=== PATIENT | male | born 1945 | race Hispanic/Latino ===

== ENCOUNTER 2017-10-09 23:52 | Emergency (ER) | payer MEDICARE, MEDICAID ==
[~2017-10-09] VITALS: Ht 154.9 cm; Wt 79.4 kg
[~2017-10-09 23:52] MED LIST: AMLODIPINE10 MG PO; ASPIRIN LOW DOS81 MG PO; ASPIRIN325 MG PO; BACLOFEN10 MG PO; BAYER ASPIRIN325 MG PO; CIPROFLOXACN500 MG PO; DIABETA5 MG PO; EC ASPIRIN325 MG PO; ERYTHROMYCIN250 MG PO; FERR SULFATE325 MG PO; GLIPIZIDE10 M2 PO; GLUCOPHAGE1000 MG PO; GLYBURIDE5 MG PO; GOLYTEL1 OR; HYDROCHLOROT12.5 M1 PO; HYDROCHLOROT12.5 MG PO; HYDROCHLOROT25 MG PO; IRON325 M1 PO; LISINOPRIL20 MG PO; LOVASTATIN20 M1 PO; LOVASTATIN20 MG PO; MAGNESIUM296 ML/BTL PO; MEDDOSEPAK PO; MELOXICAM15 MG PO; METFORMIN1000 MG PO; METFORMIN500 M2 PO; METFORMIN500 MG PO; MILK OF MAG30 ML/UDC PO; NAPROSYN500 MG PO; NEOMYCIN500 MG PO; OMEPRAZOLE20 M1 PO; OMEPRAZOLE20 MG PO; OMEPRAZOLE40 MG PO; PHENERGAN12.5 MG/TA PO; PLAVIX75 MG PO; TAMSULOSIN0.4 MG PO; TRAMADOL HCL50 MG PO; ULTRAM50 MG PO; ZOFRAN ODT4 MG PO; [UNRECOGNIZED DRUG - OTHER] PO
[2017-10-10 00:23] LABS: URINE BILIRUBIN - DIPSTICK NEGATIVE (NEGATIVE); URINE BLOOD DIPSTICK NEGATIVE (NEGATIVE); URINE COLOR YELLOW; URINE GLUCOSE - DIPSTICK >=1000 mg/dL (NEGATIVE); URINE KETONE NEGATIVE (NEGATIVE); URINE LEUK ESTERASE NEGATIVE (NEGATIVE); URINE NITRITE - DIPSTICK NEGATIVE (Negative); URINE PROTEIN - DIPSTICK NEGATIVE (NEG-TRACE); URINE UROBILINOGEN - DIPSTICK 0.2 E.U./dL (0.2)
[2017-10-10 00:25] LABS: URINE CLARITY SL CLOUDY
[2017-10-10 00:33] LABS: HEMATOCRIT 34.2 % (39.0-50.0); HEMOGLOBIN 11.2 g/dl (14.0-18.0); IMMATURE GRANULOCYTES 0.3 % (0.0-1.0); MEAN CORPUSCULAR HGB 26.9 pG CALC (26.0-32.0); MEAN CORPUSCULAR HGB CONC 32.7 g/L CALC (32.0-36.0); NEUT# 4.35 thou/uL (1.82-7.42); RED BLOOD COUNT 4.17 mill/uL (4.70-6.10); RED CELL DISTRI WIDTH 14.8 % (11.5-15.5)
[2017-10-10 00:48] LABS: ALBUMIN 4.1 g/dL (3.2-5.0); ALKALINE PHOSPHATASE 153 u/l (38-126); ANION GAP 19 (6-22 (CALC)); BILIRUBIN, TOTAL 0.3 mg/dL (0.0-1.4); BUN 25 mg/dL (8-23); BUN/CREATININE RATIO 26 (12-20 (CALC)); CARBON DIOXIDE 27 mmol/l (22-30); CHLORIDE 93 mmol/l (95-108); GFR > 60 ML/MIN (>=60 (CALC)); GFR FOR AFR.AMER. > 60 ML/MIN (>=60 (CALC)); POTASSIUM 4.1 mmol/l (3.5-5.1); SGOT/AST 25 u/l (19-48); SGPT/ALT 37 u/l (11-66); SODIUM 135 mmol/l (137-146)
[2017-10-10 02:13] VITALS: BP 129/62
== END 2017-10-10 02:13 | disposition home or self-care (01) ==
LOC: ED 23:52
PROVIDERS: Emergency Medicine
DX: N39.0 Urinary tract infection, site not specified (principal); N48.1 Balanitis; E11.65 Type 2 diabetes mellitus with hyperglycemia; Z85.038 Personal history of other malignant neoplasm of large intestine

== ENCOUNTER 2017-10-30 09:38 | Day surgery (SDC) | payer MEDICARE, MEDICAID ==
[~2017-10-30] VITALS: Ht 154.9 cm; Wt 78.9 kg
[~2017-10-30 09:38] MED LIST changes: +DOXAZOSIN4 MG PO; +LISINOPRIL40 MG PO; +LOVASTATIN40 M1 PO; +MAXZIDE-2537.5 MG/TA PO; +NAPROXEN500 MG PO; +PANTOPRAZOLE SO40 MG PO; +TRAZODONE100 MG PO
[2017-10-30 11:41] VITALS: BP 130/60
== END 2017-10-30 11:45 | disposition home or self-care (01) ==
LOC: ENDO 09:38 → ORM 12:30
PROVIDERS: ATTEND Internal Medicine Gastroenterology
PROC: 0DB78ZX Excision of Stomach, Pylorus, Via Natural or Artificial Opening Endoscopic, Diagnostic (ICD-10-PCS; principal; 2017-10-30)
DX: K29.50 Unspecified chronic gastritis without bleeding (principal); K25.9 Gastric ulcer, unspecified as acute or chronic, without hemorrhage or perforation; I25.10 Atherosclerotic heart disease of native coronary artery without angina pectoris; E11.9 Type 2 diabetes mellitus without complications; Z85.038 Personal history of other malignant neoplasm of large intestine; Z92.21 Personal history of antineoplastic chemotherapy; Z80.0 Family history of malignant neoplasm of digestive organs; Z86.010 Personal history of colon polyps; Z95.5 Presence of coronary angioplasty implant and graft

== ENCOUNTER 2018-06-03 11:24 | Emergency (ER) | payer MEDICARE ==
[~2018-06-03] VITALS: Ht 154.9 cm; Wt 74.6 kg
[2018-06-03] MEDS ORDERED: JANUVIA100 MG PO (12:28)
[2018-06-03] MEDS ORDERED: TORADOL PO (13:37)
[2018-06-03] MEDS ORDERED: ZITHROMAX250 MG PO (13:37)
[2018-06-03 13:50] VITALS: BP 138/68
== END 2018-06-03 13:50 | disposition home or self-care (01) ==
LOC: ED 11:24
DX: J40 Bronchitis, not specified as acute or chronic (principal); B34.9 Viral infection, unspecified; R50.9 Fever, unspecified; R05 Cough; R09.81 Nasal congestion; R51 Headache

== ENCOUNTER 2020-07-08 10:42 | Emergency (ER) | payer MEDICARE ==
[~2020-07-08] VITALS: Ht 154.9 cm; Wt 75.0 kg
[~2020-07-08 10:42] MED LIST changes: +JANUVIA100 MG PO; +TORADOL PO; +ZITHROMAX250 MG PO
[2020-07-08] MEDS ORDERED: CLONIDINE0.1 MG PO (12:08)
[2020-07-08] MEDS ORDERED: ASPIRIN81 MG PO (12:08)
[2020-07-08 12:22] LABS: HEMATOCRIT 37.3 % (39.0-50.0); HEMOGLOBIN 12.1 g/dl (14.0-18.0); IMMATURE GRANULOCYTES 0.4 % (0.0-5.0); MEAN CORPUSCULAR HGB 27.3 pG CALC (26.0-32.0); MEAN CORPUSCULAR HGB CONC 32.4 g/dL CAL (32.0-36.0); NEUT# 6.02 thou/uL (1.82-7.42); RED BLOOD COUNT 4.44 mill/uL (4.70-6.10); RED CELL DISTRI WIDTH 12.8 % (11.5-15.5)
[2020-07-08 12:38] LABS: ALBUMIN 4.7 g/dL (3.2-5.0); ALKALINE PHOSPHATASE 100 u/l (38-126); ANION GAP 14 (6-22 (CALC)); BILIRUBIN, TOTAL 0.4 mg/dL (0.0-1.4); BUN 23 mg/dL (8-23); BUN/CREATININE RATIO 24 (12-20 (CALC)); CARBON DIOXIDE 28 mmol/l (22-30); CHLORIDE 98 mmol/l (95-108); CREATININE 0.9 mg/dL (0.7-1.3); ETHYL ALCOHOL 0 mg/dl (0-30); GFR > 60 ML/MIN (>=60 (CALC)); GFR FOR AFR.AMER. > 60 ML/MIN (>=60 (CALC)); LIPASE 39 u/l (23-300); POTASSIUM 4.5 mmol/l (3.5-5.1); SGOT/AST 24 u/l (19-48); SODIUM 135 mmol/l (137-146); TOTAL PROTEIN 7.7 g/dL (6.3-8.2)
[2020-07-08 12:39] LABS: D-DIMER 0.41 mg/L (0.19-0.60)
[2020-07-08 12:49] LABS: URINE BILIRUBIN - DIPSTICK NEGATIVE (NEGATIVE); URINE BLOOD DIPSTICK NEGATIVE (NEGATIVE); URINE COLOR YELLOW; URINE GLUCOSE - DIPSTICK NEGATIVE (NEGATIVE); URINE KETONE NEGATIVE (NEGATIVE); URINE LEUK ESTERASE NEGATIVE (NEGATIVE); URINE NITRITE - DIPSTICK NEGATIVE (Negative); URINE PROTEIN - DIPSTICK NEGATIVE (NEG-TRACE); URINE SPECIFIC GRAVITY 1.015; URINE UROBILINOGEN - DIPSTICK 0.2 E.U./dL (0.2)
[2020-07-08 12:50] LABS: ACT PARTIAL THROMBO TIME 24.2 SECONDS (20.0-32.5); PROTHROMBIN TIME 9.9 SECONDS (9.0-12.5)
[2020-07-08] MEDS ORDERED: ZPAK PO (15:02)
[2020-07-08 15:11] VITALS: BP 132/79
== END 2020-07-08 15:21 | disposition home or self-care (01) ==
LOC: ED 10:42
DX: R55 Syncope and collapse (principal); J18.9 Pneumonia, unspecified organism; E11.9 Type 2 diabetes mellitus without complications; I10 Essential (primary) hypertension; E78.5 Hyperlipidemia, unspecified; K21.9 Gastro-esophageal reflux disease without esophagitis; Z85.038 Personal history of other malignant neoplasm of large intestine; Z79.84 Long term (current) use of oral hypoglycemic drugs; Z20.822 Contact with and (suspected) exposure to COVID-19
CPT/HCPCS: Q9967

== ENCOUNTER 2020-07-09 17:01 | Observation (INO) | payer MEDICARE ==
[~2020-07-09] VITALS: Ht 152.4 cm; Wt 72.7 kg
[~2020-07-09 17:01] MED LIST changes: +ASPIRIN81 MG PO; +CLONIDINE0.1 MG PO; +ZPAK PO
[2020-07-09 17:37] LABS: HEMATOCRIT 36.1 % (39.0-50.0); HEMOGLOBIN 11.5 g/dl (14.0-18.0); IMMATURE GRANULOCYTES 0.3 % (0.0-5.0); MEAN CELL VOLUME 85.5 fL CALC (80.0-100.0); MEAN CORPUSCULAR HGB 27.3 pG CALC (26.0-32.0); MEAN CORPUSCULAR HGB CONC 31.9 g/dL CAL (32.0-36.0); NEUT# 4.86 thou/uL (1.82-7.42); RED BLOOD COUNT 4.22 mill/uL (4.70-6.10); RED CELL DISTRI WIDTH 13.1 % (11.5-15.5)
[2020-07-09 17:51] LABS: ANION GAP 16 (6-22 (CALC)); BUN 31 mg/dL (8-23); BUN/CREATININE RATIO 27 (12-20 (CALC)); CARBON DIOXIDE 25 mmol/l (22-30); CHLORIDE 102 mmol/l (95-108); CREATININE 1.2 mg/dL (0.7-1.3); GFR 59 ML/MIN (>=60 (CALC)); GFR FOR AFR.AMER. > 60 ML/MIN (>=60 (CALC)); POTASSIUM 4.6 mmol/l (3.5-5.1); SODIUM 138 mmol/l (137-146)
[2020-07-09 21:05] VITALS: BP 156/72
[2020-07-10] VITALS (11 sets, daily range): BP systolic 135–209; BP diastolic 53–88
[2020-07-10 05:53] LABS: HEMATOCRIT 35.1 % (39.0-50.0); HEMOGLOBIN 11.2 g/dl (14.0-18.0); IMMATURE GRANULOCYTES 0.3 % (0.0-5.0); MEAN CELL VOLUME 85.6 fL CALC (80.0-100.0); MEAN CORPUSCULAR HGB 27.3 pG CALC (26.0-32.0); MEAN CORPUSCULAR HGB CONC 31.9 g/dL CAL (32.0-36.0); NEUT# 5.18 thou/uL (1.82-7.42); RED BLOOD COUNT 4.1 mill/uL (4.70-6.10)
[2020-07-10 06:13] LABS: ALKALINE PHOSPHATASE 97 u/l (38-126); ANION GAP 10 (6-22 (CALC)); BILIRUBIN, TOTAL 0.3 mg/dL (0.0-1.4); BUN 22 mg/dL (8-23); BUN/CREATININE RATIO 24 (12-20 (CALC)); CARBON DIOXIDE 29 mmol/l (22-30); CHLORIDE 105 mmol/l (95-108); CREATININE 0.9 mg/dL (0.7-1.3); GFR > 60 ML/MIN (>=60 (CALC)); GFR FOR AFR.AMER. > 60 ML/MIN (>=60 (CALC)); POTASSIUM 4.1 mmol/l (3.5-5.1); SGOT/AST 22 u/l (19-48); SODIUM 140 mmol/l (137-146); TOTAL PROTEIN 6.6 g/dL (6.3-8.2)
[2020-07-11] VITALS: BP 122/55
[2020-07-11 04:00] VITALS: BP 137/60
[2020-07-11 07:52] VITALS: BP 166/74
[2020-07-11 10:30] VITALS: BP 151/65
[2020-07-11] MEDS ORDERED: XANAX0.5 MG PO (10:47)
[2020-07-11] MEDS ORDERED: ZOLOFT25 MG PO (10:47)
== END 2020-07-11 12:22 | disposition home or self-care (01) ==
LOC: ED 17:01 → ED-I 18:20 → ED 18:34 → MS2 18:35
PROVIDERS: Family Medicine; Nurse Practitioner Family; ADMIT Internal Medicine; ATTEND Internal Medicine
DX: R55 Syncope and collapse (principal); F41.9 Anxiety disorder, unspecified; R00.0 Tachycardia, unspecified; J18.9 Pneumonia, unspecified organism; E11.9 Type 2 diabetes mellitus without complications; I10 Essential (primary) hypertension; K21.9 Gastro-esophageal reflux disease without esophagitis; E78.5 Hyperlipidemia, unspecified; Z80.0 Family history of malignant neoplasm of digestive organs; Z95.5 Presence of coronary angioplasty implant and graft; Z79.84 Long term (current) use of oral hypoglycemic drugs; Z20.822 Contact with and (suspected) exposure to COVID-19
CPT/HCPCS: J1650; J2060

== ENCOUNTER 2024-08-26 23:05 | Emergency (ER) | payer MEDICARE, MEDICAID ==
[~2024-08-26] VITALS: Ht 152.4 cm; Wt 73.0 kg
[~2024-08-26 23:05] MED LIST changes: +CEPHALEXIN500 M1 PO; +XANAX0.5 MG PO; +ZOLOFT25 MG PO
[2024-08-27 00:02] LABS: BASO% 0.5 % (0-3); EOS% 3.7 % (0-8); HEMATOCRIT 32.1 % (39.0-50.0); HEMOGLOBIN 10.4 g/dl (14.0-18.0); IMMATURE GRANULOCYTES 0.2 % (0.0-5.0); LYMPH% 20.8 % (15-41); MEAN CORPUSCULAR HGB 26.9 pG CALC (26.0-32.0); MEAN CORPUSCULAR HGB CONC 32.4 g/dL CAL (32.0-36.0); MONO% 9.4 % (2-13); NEUT# 5.65 thou/uL (1.82-7.42); NEUT% 65.4 % (42-76); RED BLOOD COUNT 3.87 mill/uL (4.70-6.10); RED CELL DISTRI WIDTH 14.5 % (11.5-15.5)
[2024-08-27 00:05] LABS: MEAN CELL VOLUME 82.9 fL CALC (80.0-100.0)
[2024-08-27 02:26] VITALS: BP 119/59
== END 2024-08-27 02:26 | disposition home or self-care (01) ==
LOC: ED 23:05
PROVIDERS: Family Medicine
DX: J06.9 Acute upper respiratory infection, unspecified (principal); I10 Essential (primary) hypertension; E11.9 Type 2 diabetes mellitus without complications; E78.5 Hyperlipidemia, unspecified; K21.9 Gastro-esophageal reflux disease without esophagitis; Z95.5 Presence of coronary angioplasty implant and graft; Z85.038 Personal history of other malignant neoplasm of large intestine; Z90.49 Acquired absence of other specified parts of digestive tract; Z79.84 Long term (current) use of oral hypoglycemic drugs; Z20.822 Contact with and (suspected) exposure to COVID-19